=== PATIENT | female | born 1955 | race Caucasian/White ===

== ENCOUNTER → 2016-04-14 | Outpatient (CLI) | payer OTHER, BC | LOC: RAD 10:36 | PROVIDERS: ATTEND Internal Medicine | DX: M54.14 Radiculopathy, thoracic region (principal) | CPT/HCPCS: 72146 ==

== ENCOUNTER → 2016-10-07 | Outpatient (CLI) | payer OTHER, BC ==
--- NOTE | 2016-10-08 09:41 | RADIOLOGY REPORT (SQ) ---
EXAM DESCRIPTION: MRI CERVICAL SPINE WITHOUT COMPLETED DATE/TIME: 10/07/2016 10:42 am REASON FOR STUDY: RADICULOPATHY, CERVICAL REGION M54.12 RADICULOPATHY, CERVICAL REGION COMPARISON: CT soft tissue neck 02/09/2012 TECHNIQUE: Sagittal and Axial imaging includes T1, T2, STIR and gradient echo sequences. LIMITATIONS: None. FINDINGS: ALIGNMENT: Normal. VERTEBRAE: Intact. BONE MARROW: Normal. No marrow replacement or reactive changes. DISCS: Diffuse decreased T2 weighted intervertebral disc signal. HARDWARE: None in the spine. CORD AND BASE OF BRAIN: Normal in size and signal intensity. SOFT TISSUES: No soft tissue masses. C1-C2: No significant spinal stenosis. C2-C3: No significant spinal stenosis or exit foraminal stenosis. C3-C4: No significant spinal stenosis or exit foraminal stenosis. Mild posterior disc bulging is pre sent. Mild left facet hypertrophy. C4-C5: No significant spinal stenosis or exit foraminal stenosis. Mild diffuse posterior disc bulgin g is present. C5-C6: Moderate diffuse posterior disc bulging is present partly effacing the ventral thecal sac with out cord flattening or abnormal intrinsic cord signal. Borderline central canal narrowing. Mild lucie ateral foraminal narrowing from facet and uncovertebral hypertrophy. C6-C7: Moderate diffuse posterior disc bulging is present partly effacing the ventral thecal sac with out cord flattening or abnormal intrinsic cord signal. Borderline central canal narrowing. Mild lucie ateral foraminal narrowing from facet and uncovertebral hypertrophy. C7-T1: No significant spinal stenosis or exit foraminal stenosis. UPPER THORACIC: Incompletely imaged. No significant spinal stenosis or exit foraminal stenosis. OTHER: No other significant finding. IMPRESSION: Degenerative changes at C5-6 and C6-7 as above TECHNICAL DOCUMENTATION: JOB ID: [id number] [employer]- All Rights Reserved
== END ==
LOC: RAD 09:52
PROVIDERS: ATTEND Orthopaedic Surgery
DX: M54.12 Radiculopathy, cervical region (principal)
CPT/HCPCS: 72141

== ENCOUNTER 2016-10-11 15:31 | Emergency (ER) | payer OTHER, BC ==
[2016-10-11] MEDS ORDERED: ONDANSETRON HCL INJ/PF 4 MG/2 ML SDV IV ONE (16:47)
[2016-10-11] MEDS ORDERED: NORMAL SALINE 1000 ML 1,000 ML IV PRN (16:48)
--- NOTE | 2016-10-11 16:54 | ER Document Report ---
ED Medical Screen (RME) - General Chief Complaint: Dizziness Stated Complaint: HEADACHE, NAUSEA, DIARRHEA Time Seen by Provider: 10/11/16 16:41 Mode of Arrival: Ambulatory Information source: Patient TRAVEL OUTSIDE OF THE [place] IN LAST 30 DAYS: No - HPI Onset: This morning Onset/Duration: Gradual, Constant Quality of pain: Dull Severity: Mild Associated Symptoms: Diarrhea, Nausea Exacerbated by: Denies Relieved by: Denies Recently seen / treated by doctor: Yes - yesterday Notes: 10/11/16 16:52 Patient is a 61-year-old female who was seen by her primary care doctor yesterday for symptoms of upper respiratory infection. Patient was diagnosed with bronchitis and sinusitis. Patient was started on Levaquin along with Mucinex. Patient states today she developed nausea, vomiting, and diarrhea. Patient states she also does not feel well and feels dizzy. Syncope. No chest pain or shortness of breath. Patient feels dehydrated although she is drinking plenty of fluids. - Related Data Allergies/Adverse Reactions: codeine [Codeine] Allergy (Verified 10/11/16 15:38) Sulfa (Sulfonamide Antibiotics) Allergy (Verified 10/11/16 15:38) sulfamethoxazole [From Septra] Allergy (Verified 10/11/16 16:34) tramadol HCl [From Ultram] Allergy (Verified 10/11/16 15:38) trimethoprim [From Septra] Allergy (Verified 10/11/16 16:34) valacyclovir [From Valtrex] Allergy (Verified 10/11/16 16:34) Past Medical History - General Information source: Patient, [facility] Records - Social History Frequency of alcohol use: Occasional Drug Abuse: None Lives with: Family - Past Medical History Cardiac Medical History: Reports: Hx Hypertension Renal/ Medical History: Denies: Hx Peritoneal Dialysis GI Medical History: Reports: Other - Irritable bowel syndrome Review of Systems - Review of Systems Gastrointestinal: Abdominal pain, Diarrhea, Nausea -: Yes All other systems reviewed and negative Physical Exam - Vital signs Vitals: Temp Pulse Resp BP Pulse Ox 97.6 F 73 20 180/96 H 100 10/11/16 15:37 10/11/16 15:37 10/11/16 15:37 10/11/16 15:37 10/11/16 15:37 Interpretation: Normal - General General appearance: Appears well, Alert - HEENT Head: Normocephalic, Atraumatic Eyes: Normal Pupils: PERRL - Respiratory Respiratory status: No respiratory distress Chest status: Nontender Breath sounds: Normal Chest palpation: Normal - Cardiovascular Rhythm: Regular Heart sounds: Normal auscultation Murmur: No - Abdominal Inspection: Normal Distension: No distension Bowel sounds: Normal Tenderness: Nontender Organomegaly: No organomegaly - Back Back: Normal, Nontender - Extremities General upper extremity: Normal inspection, Nontender, Normal color, Normal ROM , Normal temperature General lower extremity: Normal inspection, Nontender, Normal color, Normal ROM , Normal temperature, Normal weight bearing. No: Velvet's sign - Neurological Neuro grossly intact: Yes Cognition: Normal Orientation: AAOx4 Eaton Coma Scale Eye Opening: Spontaneous Gurpreet Coma Scale Verbal: Oriented Eaton Coma Scale Motor: Obeys Commands Eaton Coma Scale Total: 15 Speech: Normal Motor strength normal: LUE, RUE, LLE, RLE Sensory: Normal - Psychological Associated symptoms: Normal affect, Normal mood - Skin Skin Temperature: Warm Skin Moisture: Dry Skin Color: Normal Course - Re-evaluation Re-evalutation: 10/11/16 18:36 Patient reassessed and is feeling better. Results reviewed and discussed with patient. She wishes to continue on the Levaquin. She will discontinue the Mucinex. She will follow-up with her primary care doctor. - Vital Signs Vital signs: Temp Pulse Resp BP Pulse Ox 97.6 F 73 20 180/96 H 100 10/11/16 15:37 10/11/16 15:37 10/11/16 15:37 10/11/16 15:37 10/11/16 15:37 - Laboratory Result Diagrams: 10/11/16 17:20 10/11/16 17:20 Laboratory results interpreted by me: 10/11/16 10/11/16 10/11/16 17:20 17:20 17:44 Seg Neutrophils % 78.4 H Sodium 128.8 L Chloride 94 L AST 48 H ALT 120 H Alkaline Phosphatase 162 H Urine Ketones 20 H Ur Leukocyte Esterase TRACE H Urine Ascorbic Acid 40 H Doctor's Discharge - Discharge Clinical Impression: Nausea, Hyponatremia Disposition: HOME, SELF-CARE Instructions: Nausea or Vomiting, Nonspecific ([facility]), Hyponatremia ([facility]) Additional Instructions: Follow-up with your primary care doctor. Return to the emergency department if worse or for any other problems. Prescriptions: Ondansetron [Zofran Odt 4 mg Tablet] 1 - 2 tab PO Q4H PRN #15 tab.rapdis PRN Reason: For Nausea/Vomiting
[2016-10-11 17:32] LABS: ABSOLUTE BASOPHILS # (AUTO) 0.1 10^3/uL (0.0-0.2); ABSOLUTE LYMPHOCYTES (AUTO) 1.2 10^3/uL (0.5-4.7); ABSOLUTE MONOCYTES (AUTO) 0.5 10^3/uL (0.1-1.4); ABSOLUTE NEUT (AUTO) 6.6 10^3/uL (1.7-8.2); BASOPHILS % (AUTO) 0.6 % (0-2); EOSINOPHILS % (AUTO) 0.4 % (0-6); HEMOGLOBIN 14.5 g/dL (12.0-15.5); HGB HCT DIFFERENCE -0.5; LYMPHOCYTES % (AUTO) 14.1 % (13-45); MEAN CORPUSCULAR HEMOGLOBIN 27.9 pg (27.0-33.4); MEAN CORPUSCULAR HGB CONC 32.9 g/dL (32.0-36.0); MEAN CORPUSCULAR VOLUME 85 fl (80-97); MONOCYTES % (AUTO) 6.5 % (3-13); RED BLOOD COUNT 5.21 10^6/uL (3.72-5.28); RED CELL DISTRIBUTION WIDTH 13.7 % (11.5-14.0); SEGMENTED NEUTROPHILS % (AUTO) 78.4 % (42-78); WHITE BLOOD COUNT 8.4 10^3/uL (4.0-10.5)
[2016-10-11 17:46] LABS: ALANINE AMINOTRANSFERASE 120 U/L (9-52); ALBUMIN 4.3 g/dL (3.5-5.0); ALKALINE PHOSPHATASE 162 U/L (38-126); ANION GAP 12 (5-19); ASPARTATE AMINO TRANSFERASE 48 U/L (14-36); BILIRUBIN,DIRECT 0.2 mg/dL (0.0-0.4); BILIRUBIN,TOTAL 0.7 mg/dL (0.2-1.3); BLOOD UREA NITROGEN 13 mg/dL (7-20); CARBON DIOXIDE 23 mmol/L (22-30); CHLORIDE 94 mmol/L (98-107); CREATININE RESULT 0.52 mg/dL (0.52-1.25); GLUCOSE 110 mg/dL (75-110); POTASSIUM 4.4 mmol/L (3.6-5.0); SODIUM 128.8 mmol/L (137-145); TOTAL PROTEIN 7.6 g/dL (6.3-8.2)
[2016-10-11 18:07] LABS: APPEARANCE,URINE SLIGHTLY-CLOUDY; BILIRUBIN,URINE NEGATIVE (NEGATIVE); GLUCOSE, URINE NEGATIVE (NEGATIVE); KETONES,URINE 20 mg/dL (NEGATIVE); LEUKOCYTE ESTERASE,URINE TRACE (NEGATIVE); NITRITE,URINE NEGATIVE (NEGATIVE); PROTEIN,URINE NEGATIVE (NEGATIVE); URINE SPECIFIC GRAVITY 1.014; UROBILINOGEN,URINE NEGATIVE mg/dL (<2.0)
[2016-10-11 19:24] VITALS: BP 162/86
== END 2016-10-11 18:52 | disposition home or self-care (01) ==
LOC: ER 15:31
DX: R11.2 Nausea with vomiting, unspecified (principal); R19.7 Diarrhea, unspecified; R10.9 Unspecified abdominal pain; R55 Syncope and collapse; E87.1 Hypo-osmolality and hyponatremia; J40 Bronchitis, not specified as acute or chronic; J32.9 Chronic sinusitis, unspecified; Z88.5 Allergy status to narcotic agent; Z88.2 Allergy status to sulfonamides; Z88.1 Allergy status to other antibiotic agents; Z88.3 Allergy status to other anti-infective agents; Z87.19 Personal history of other diseases of the digestive system
CPT/HCPCS: 99284; 96374; 36415; 85025; 80053; 81001; J2405

== ENCOUNTER → 2017-05-29 | Outpatient (CLI) | payer OTHER, BC ==
--- NOTE | 2017-06-04 08:03 | WOMENS IMAGING REPORT ---
EXAM DESCRIPTION: 3D SCREENING MAMMO BILAT COMPLETED DATE/TIME: 05/29/2017 8:02 am REASON FOR STUDY: SCREENING MAMMO Z12.31 ENCNTR SCREEN MAMMOGRAM FOR MALIGNANT NEOPLASM OF BEBE COMPARISON: 08/12/2015 TECHNIQUE: Standard craniocaudal and mediolateral oblique views of each breast recorded using digita l acquisition and breast tomosynthesis. LIMITATIONS: None. FINDINGS: Findings present which are benign by mammographic criteria. No suspicious masses, calcifi cations or architectural distortion. Pertinent benign findings: Benign-appearing calcifications. Read with the assistance of CAD. .[facility] - R2 [employer] Version 1.3 .[facility] Imaging - R2 Cenova Version 1.3 .[facility] - R2 Cenova Version 2.4 .[facility] - R2 Cenova Version 2.4 .[facility] - R2 Copyright Clerk Version 9.2 Benign mammographic findings may include one or more of the following: Smooth masses, popcorn/rim/co arse calcifications, asymmetries, post-procedure changes, and lesions with long-standing stability. IMPRESSION: BENIGN MAMMOGRAPHIC FINDINGS. BIRADS 2 BREAST DENSITY: c. The breasts are heterogeneously dense, which may obscure small masses. BIRAD: 2 BENIGN FINDING(S) RECOMMENDATION: RECOMMENDATION: ROUTINE SCREENING COMMENT: The patient has been notified of the results by letter per SA requirements. Additional no tification policies are in place for contacting patient with suspicious or incomplete findings. Quality ID #[id number]: The [employer] recommends an annual screening mammogram for women aged 40 years or over. This facility utilizes a reminder system to ensure that all patients receive reminder letters, and/or direct phone calls for appointments. This includes reminders for routine scr eening mammograms, diagnostic mammograms, or other Breast Imaging Interventions when appropriate. Th is patient will be placed in the appropriate reminder system. The [employer] (ACR) has developed recommendations for screening MRI of the breast s in certain patient populations, to be used in conjunction with mammography. Breast MRI surveillanc e may be appropriate for women with more than 20% lifetime risk of developing breast cancer as deter mined by genetic testing, significant family history of the disease, or history of mantle radiation f or Hodgkins Disease. ACR Practice Guidelines 2008. DBT Technology DBT is a type of tomographic mammography. With conventional mammography, overlapping breast tissue ma y make lesions difficult to detect, even with good compression. DBT uses an x-ray tube that rotates a round the breast, taking images at different angles. These images are then combined to create thin sl ices of the breast that the radiologist can view as a 3D reconstruction. The Hologic unit can perform full-field digital mammograms (2D imaging); or DBT (3D imaging); or both, in a combination mode that quickly performs both the mammogram and the tomosynthesis scan while the breast is still compressed. PQRS 6045F: Fluoroscopic imaging is not utilized for breast tomosynthesis. TECHNICAL DOCUMENTATION: FINDING NUMBER: (1) ASSESSMENT: (1) JOB ID: [id number] [employer]- All Rights Reserved Reading location - IP/workstation name: [email or web address]
== END ==
LOC: WI 07:18
PROVIDERS: ATTEND Specialist
DX: Z12.31 Encounter for screening mammogram for malignant neoplasm of breast (principal)
CPT/HCPCS: 77063; 77067

== ENCOUNTER → 2018-05-09 | Outpatient (CLI) | payer OTHER, BC ==
[2018-05-09 07:43] LABS: ABSOLUTE BASOPHILS # (AUTO) 0.1 10^3/uL (0.0-0.2); ABSOLUTE EOSINOPHILS # (AUTO) 0.2 10^3/uL (0.0-0.6); ABSOLUTE LYMPHOCYTES (AUTO) 2.1 10^3/uL (0.5-4.7); ABSOLUTE MONOCYTES (AUTO) 0.5 10^3/uL (0.1-1.4); ABSOLUTE NEUT (AUTO) 3.7 10^3/uL (1.7-8.2); BASOPHILS % (AUTO) 1.1 % (0-2); HEMATOCRIT 42.2 % (36.0-47.0); HEMOGLOBIN 14.3 g/dL (12.0-15.5); LYMPHOCYTES % (AUTO) 32.5 % (13-45); MEAN CORPUSCULAR HEMOGLOBIN 28.5 pg (27.0-33.4); MEAN CORPUSCULAR HGB CONC 33.9 g/dL (32.0-36.0); MEAN CORPUSCULAR VOLUME 84 fl (80-97); MONOCYTES % (AUTO) 7.2 % (3-13); PLATELET COUNT 302 10^3/uL (150-450); RED BLOOD COUNT 5.03 10^6/uL (3.72-5.28); RED CELL DISTRIBUTION WIDTH 14.2 % (11.5-14.0); SEGMENTED NEUTROPHILS % (AUTO) 56.2 % (42-78); TOTAL CELLS COUNTED % (AUTO) 100 %; WHITE BLOOD COUNT 6.5 10^3/uL (4.0-10.5)
[2018-05-09 08:05] LABS: ALANINE AMINOTRANSFERASE 21 U/L (9-52); ALBUMIN 4.7 g/dL (3.5-5.0); ALKALINE PHOSPHATASE 111 U/L (38-126); ANION GAP 9 (5-19); ASPARTATE AMINO TRANSFERASE 19 U/L (14-36); BILIRUBIN,DIRECT 0.1 mg/dL (0.0-0.4); BILIRUBIN,TOTAL 0.3 mg/dL (0.2-1.3); BLOOD UREA NITROGEN 18 mg/dL (7-20); CALCIUM 10.8 mg/dL (8.4-10.2); CARBON DIOXIDE 29 mmol/L (22-30); CHLORIDE 106 mmol/L (98-107); CHOLESTEROL 217.16 mg/dL (0-200); GLUCOSE 101 mg/dL (75-110); POTASSIUM 5.3 mmol/L (3.6-5.0); TOTAL PROTEIN 7.2 g/dL (6.3-8.2); TRIGLYCERIDES 89 mg/dL (<150)
[2018-05-09 08:16] LABS: DIRECT LDL 114 mg/dL (<100)
== END ==
LOC: OD 07:16
PROVIDERS: ATTEND Internal Medicine
DX: I10 Essential (primary) hypertension (principal); E78.5 Hyperlipidemia, unspecified; E83.2 Disorders of zinc metabolism; R79.89 Other specified abnormal findings of blood chemistry
CPT/HCPCS: 36415; 80053; 80061; 82306; 83970; 84443; 85025

== ENCOUNTER → 2018-05-22 | Outpatient (CLI) | payer OTHER, BC ==
--- NOTE | 2018-05-22 13:30 | RADIOLOGY REPORT (SQ) ---
EXAM DESCRIPTION: NM PARATHYROID IMAGING COMPLETED DATE/TIME: 05/22/2018 12:59 pm REASON FOR STUDY: HYPERPARATHYROIDISM E21.3 HYPERPARATHYROIDISM, UNSPECIFIED COMPARISON: None. RADIONUCLIDE AND DOSE: 21.9 millicuries Tc-99m Sestamibi. The route of agent administration: Intravenous ADDITIONAL DRUGS AND DOSES: None. TECHNIQUE: Early and delayed images of the neck acquired following radionuclide administration. LIMITATIONS: None. FINDINGS: Thyroid: Normal size. Homogeneous activity. Normal washout. No focal lesions. Parathyroid: No retained activity in the thyroid or elsewhere in the neck to indicate a parathyroid a denoma. Other: No other significant findings. IMPRESSION: NORMAL STUDY. NO EVIDENCE OF PARATHYROID ADENOMA. TECHNICAL DOCUMENTATION: JOB ID: [id number] [employer]- All Rights Reserved Reading location - IP/workstation name: [email or web address]
== END ==
LOC: RAD 08:20
PROVIDERS: ATTEND Internal Medicine
DX: E21.3 Hyperparathyroidism, unspecified (principal)
CPT/HCPCS: 78070; A9500; Q9969

== ENCOUNTER → 2018-10-07 | Outpatient (CLI) | payer OTHER, BC ==
--- NOTE | 2018-10-08 09:02 | WOMENS IMAGING REPORT ---
EXAM DESCRIPTION: 3D SCREENING MAMMO BILAT COMPLETED DATE/TIME: 10/07/2018 7:47 am REASON FOR STUDY: Z12.31 ENCOUNTER FOR SCREENING MAMMOGRAM FOR MALIGNANT NEOPLASM OF BREAST Z12.31 ENCNTR SCREEN MAMMOGRAM FOR MALIGNANT NEOPLASM OF BEBE COMPARISON: 2018 EXAM PARAMETERS: Views: Standard craniocaudal and mediolateral oblique views of each breast recorded using digital acquisition and breast tomosynthesis. Read with the assistance of CAD. .[facility] - [employer] Device Designer Version 9.2 LIMITATIONS: None. FINDINGS: No suspicious masses, suspicious calcifications or architectural distortion. No areas of c oncern. IMPRESSION: NEGATIVE MAMMOGRAM. BIRADS 1. BREAST DENSITY: c. The breasts are heterogeneously dense, which may obscure small masses. BIRAD: ASSESSMENT: 1 NEGATIVE RECOMMENDATION: ROUTINE SCREENING COMMENT: The patient has been notified of the results by letter per MQSA requirements. Additional no tification policies are in place for contacting patient with suspicious or incomplete findings. Quality ID #225: The [employer] recommends an annual screening mammogram for women aged 40 years or over. This facility utilizes a reminder system to ensure that all patients receive reminder letters, and/or direct phone calls for appointments. This includes reminders for routine scr eening mammograms, diagnostic mammograms, or other Breast Imaging Interventions when appropriate. Th is patient will be placed in the appropriate reminder system. TECHNICAL DOCUMENTATION: FINDING NUMBER: (1) ASSESSMENT: (1) JOB ID: [id number] [employer]- All Rights Reserved Reading location - IP/workstation name: [email or web address]
== END ==
LOC: WI 07:15
PROVIDERS: ATTEND Specialist
DX: Z12.31 Encounter for screening mammogram for malignant neoplasm of breast (principal)
CPT/HCPCS: 77063; 77067

== ENCOUNTER 2018-12-01 13:57 | Emergency (ER) | payer OTHER, BC ==
[2018-12-01] MEDS ORDERED: ACETAMINOPHEN 325 MG TABLET PO ONE (15:15)
--- NOTE | 2018-12-01 15:21 | ER Document Report ---
ED Medical Screen (RME) - General Chief Complaint: Laceration Stated Complaint: ARM LACERATION Time Seen by Provider: 12/01/18 15:09 Primary Care Provider: AUSTEN HAILE MD [Primary Care Provider] - Follow up as needed Notes: Patient is a 63-year-old female presents to the emergency department with a chief complaint of laceration. Patient states around 1245 she was using a knife to open a remote to change the batteries as it had been corroded. Patient states the knife slipped and cut her right lower forearm. Patient states initially there was squirting of blood. Patient did call EMS which they did dress the wound. Patient states her tetanus shot is up-to-date. Patient states she originally did have some numbness and tingling to her hand that has now improved. Patient reports numbness to the left inner wrist. Patient states she has not taken any medication for pain. TRAVEL OUTSIDE OF THE [place] IN LAST 30 DAYS: No - Related Data Allergies/Adverse Reactions: codeine [Codeine] Allergy (Verified 12/01/18 13:58) Sulfa (Sulfonamide Antibiotics) Allergy (Verified 12/01/18 13:58) sulfamethoxazole [From Septra] Allergy (Verified 12/01/18 13:58) tramadol HCl [From Ultram] Allergy (Verified 12/01/18 13:58) trimethoprim [From Septra] Allergy (Verified 12/01/18 13:58) valacyclovir [From Valtrex] Allergy (Verified 12/01/18 13:58) Past Medical History - Social History Chew tobacco use (# tins/day): No Frequency of alcohol use: Occasional Drug Abuse: None - Past Medical History Cardiac Medical History: Reports: Hx Hypertension Renal/ Medical History: Denies: Hx Peritoneal Dialysis Physical Exam - Vital signs Vitals: Temp Pulse Resp BP Pulse Ox 97.7 F 62 17 115/94 H 96 12/01/18 14:06 12/01/18 14:06 12/01/18 14:06 12/01/18 14:06 12/01/18 14:06 Interpretation: Normal - Extremities Notes: There is a 3 cm linear laceration noted to the inner right lower forearm, subcutaneous tissue noted without visualization of muscle, tendon or nerve. There is active bleeding when dressing was removed. Course - Re-evaluation Re-evalutation: 12/01/18 15:19 Patient require a laceration repair with sutures, the wound will also require lidocaine with wound exploration. Patient's tetanus shot is up-to-date. 12/01/18 15:21 I have greeted and performed a rapid initial assessment of this patient. A comprehensive ED assessment and evaluation of the patient, analysis of test results and completion of the medical decision making process will be conducted by additional ED providers. - Vital Signs Vital signs: Temp Pulse Resp BP Pulse Ox 97.7 F 62 17 115/94 H 96 12/01/18 14:06 12/01/18 14:06 12/01/18 14:06 12/01/18 14:06 12/01/18 14:06 Doctor's Discharge - Discharge Referrals: AUSTEN HAILE MD [Primary Care Provider] - Follow up as needed
[2018-12-01] MEDS ORDERED: LIDOCAINE 1%/EPINEPHRINE INJ 20 ML VIAL INJ ONE (16:46)
--- NOTE | 2018-12-01 18:44 | ER Document Report ---
ED General - General Chief Complaint: Laceration Stated Complaint: ARM LACERATION Time Seen by Provider: 12/01/18 15:09 Primary Care Provider: AUSTEN HAILE MD [EMERITUS] - Follow up as needed Notes: 63-year-old female who was trying to get corroded batteries out of something using a knife when the knife slipped and she stabbed herself in the volar aspect of her left forearm. Patient complains of numbness initially to her fingers and her palm of the left hand now only complains of numbness to the palm of the left hand. Denies weakness. States that blood spurted across the room. Vaccines are up-to-date. Denies taking any blood thinners or having any bleeding disorders. Patient is right-handed. TRAVEL OUTSIDE OF THE [place] IN LAST 30 DAYS: No - Related Data Allergies/Adverse Reactions: codeine [Codeine] Allergy (Verified 12/01/18 13:58) Sulfa (Sulfonamide Antibiotics) Allergy (Verified 12/01/18 13:58) sulfamethoxazole [From Septra] Allergy (Verified 12/01/18 13:58) tramadol HCl [From Ultram] Allergy (Verified 12/01/18 13:58) trimethoprim [From Septra] Allergy (Verified 12/01/18 13:58) valacyclovir [From Valtrex] Allergy (Verified 12/01/18 13:58) Past Medical History - General Information source: Patient - Social History Smoking Status: Never Smoker Chew tobacco use (# tins/day): No Frequency of alcohol use: Occasional Drug Abuse: None Family History: Reviewed & Not Pertinent Patient has suicidal ideation: No Patient has homicidal ideation: No - Past Medical History Cardiac Medical History: Reports: Hx Hypertension Renal/ Medical History: Denies: Hx Peritoneal Dialysis Past Surgical History: Reports: Hx Cholecystectomy, Hx Hysterectomy Review of Systems - Review of Systems Constitutional: No symptoms reported Cardiovascular: No symptoms reported Respiratory: No symptoms reported Gastrointestinal: No symptoms reported Genitourinary: No symptoms reported Musculoskeletal: See HPI Skin: See HPI Neurological/Psychological: See HPI Physical Exam - Vital signs Vitals: Temp Pulse Resp BP Pulse Ox 97.7 F 62 17 115/94 H 96 12/01/18 14:06 12/01/18 14:06 12/01/18 14:06 12/01/18 14:06 12/01/18 14:06 Interpretation: Normal - General General appearance: Appears well, Alert In distress: None - HEENT Head: Normocephalic, Atraumatic Eyes: Normal Pupils: PERRL - Respiratory Respiratory status: No respiratory distress - Cardiovascular Pulses: Normal: Radial Normal capillary refill: Yes - Extremities Notes: Patient complains of pain with tool crib lead strength and with flexion at the left wrist. Patient does complain of some decreased sensation to the left palm however after she has been observed for approximately an hour the numbness to the left palm has resolved. Patient is able to approximate her thumb to her fourth finger and her fifth digit. - Skin Notes: 3 cm laceration to the volar aspect of the midforearm on the left, it is gaping, one blood vessels identified but there is no active bleeding only small amount of oozing from the subcutaneous tissues, subcutaneous fat is exposed. This is linear. There is no contamination. After being explored with lidocaine and epinephrine there are no tendons, nerves or ligaments identified. I cannot see any muscle. Course - Vital Signs Vital signs: Temp Pulse Resp BP Pulse Ox 97.7 F 62 17 115/94 H 96 12/01/18 14:06 12/01/18 14:06 12/01/18 14:06 12/01/18 14:06 12/01/18 14:06 Procedures - Laceration/Wound Repair Left forearm Wound length (cm): 3 Wound's Depth, Shape: Linear. No: Into muscle Laceration pre-procedure: Sterile PPE donned, Sterile drapes applied, Shur-Clens applied Anesthetic type: 1% Lidocaine w/epi Volume Anesthetic (mLs): 4 Wound explored: Clean, No foreign body removed Wound Repaired With: Sutures Suture Size/Type: 4:0, Ethilon Number of Sutures: 4 Layer Closure?: No Post-procedure NV exam normal: Yes Complications: No Discharge - Discharge Clinical Impression: Forearm laceration Qualifiers: Encounter type: initial encounter Laterality: left Qualified Code(s): S51.812A - Laceration without foreign body of left forearm, initial encounter Condition: Stable Disposition: HOME, SELF-CARE Additional Instructions: Laceration Care Your laceration has been sutured to keep the skin edges aligned during healing. The time of suture removal depends on the nature and location of your cut. Please follow the care instructions the doctor has outlined for you and return for further care, according to the schedule you've been given. Keep the wound and dressing clean. Unless you were told otherwise, you may shower daily, blotting the wound dry with a clean, unused towel. At other times, If the dressing gets wet or blood soaked, remove it and blot the wound dry, then reapply a new dressing. Unless you were instructed otherwise, dressings should be changed at least daily. If any signs of infection occur (swelling, redness, increasing tenderness, red streaks, tender lumps in the armpit or groin above the laceration, or fever), see the doctor immediately. If you develop any redness or swelling please start taking the antibiotics that you were prescribed. If you develop worsening redness or swelling after 2 days of antibiotics then please come to the ED. Please have the sutures removed in 7 days. Prescriptions: Cephalexin Monohydrate [Keflex 500 mg Capsule] 500 mg PO Q6H 5 Days capsule Referrals: AUSTEN HAILE MD [EMERITUS] - Follow up as needed
[2018-12-01 18:56] VITALS: BP 136/66
== END 2018-12-01 18:56 | disposition home or self-care (01) ==
LOC: ER 13:57
DX: S51.812A Laceration without foreign body of left forearm, initial encounter (principal); W26.0XXA Contact with knife, initial encounter; Y93.89 Activity, other specified; R20.0 Anesthesia of skin; I10 Essential (primary) hypertension; Z88.5 Allergy status to narcotic agent; Z88.2 Allergy status to sulfonamides; Z88.1 Allergy status to other antibiotic agents; Z88.3 Allergy status to other anti-infective agents
CPT/HCPCS: 99282; 12002; J3490

== ENCOUNTER → 2019-05-21 | Outpatient (CLI) | payer OTHER, BC ==
[2019-05-21 17:13] LABS: ALBUMIN 4.5 g/dL (3.5-5.0); ALKALINE PHOSPHATASE 91 U/L (38-126); AMYLASE 86 U/L (30-110); ANION GAP 8 (5-19); ASPARTATE AMINO TRANSFERASE 20 U/L (14-36); BILIRUBIN,DIRECT 0.2 mg/dL (0.0-0.4); BILIRUBIN,TOTAL 0.4 mg/dL (0.2-1.3); BLOOD UREA NITROGEN 17 mg/dL (7-20); CARBON DIOXIDE 32 mmol/L (22-30); CHLORIDE 101 mmol/L (98-107); GLUCOSE 91 mg/dL (75-110); POTASSIUM 5.1 mmol/L (3.6-5.0); TOTAL PROTEIN 7.7 g/dL (6.3-8.2)
--- NOTE | 2019-05-21 19:26 | RADIOLOGY REPORT (SQ) ---
EXAM DESCRIPTION: CT ABD/PELVIS WITH IV ORAL COMPLETED DATE/TIME: 05/21/2019 7:09 pm REASON FOR STUDY: R10.9 UNSPECIFIED ABDOMINAL PAIN R10.9 UNSPECIFIED ABDOMINAL PAIN K57.92 DVTRCLI OF INTEST, PART UNSP, W/O PERF OR ABSCESS W/O COMPARISON: 2015 TECHNIQUE: CT scan of the abdomen and pelvis performed using helical scanning technique with dynamic intravenous contrast injection. No oral contrast. Images reviewed with lung, soft tissue, and bone windows. Reconstructed coronal and sagittal MPR images reviewed. Delayed images for evaluation of the urinary system also acquired. All images stored on PACS. All CT scanners at this facility use dose modulation, iterative reconstruction, and/or weight based d osing when appropriate to reduce radiation dose to as low as reasonably achievable (ALARA). [facility]: Dose Right [facility]: CareDose [facility]: Dose Right [facility]: Teradose 4D [facility]: Pear Deck CONTRAST TYPE AND DOSE: contrast/concentration: Isovue 350.00 mg/ml; Total Contrast Delivered: 78.0 ml; Total Saline Delivered: 45.2 ml RENAL FUNCTION: GFR > 60. RADIATION DOSE: CT Rad equipment meets quality standard of care and radiation dose reduction techniq ues were employed. CTDIvol: 7.3 - 9.9 mGy. DLP: 868 mGy-cm.. LIMITATIONS: None. FINDINGS: LOWER CHEST: No significant findings. No nodules or infiltrates. LIVER: Diffusely mildly fatty. Tiny cyst in the left lobe, chronic. No developing or worrisome lesi ons. SPLEEN: Normal size. No focal lesions. PANCREAS: No masses. No significant calcifications. No adjacent inflammation or peripancreatic fluid collections. Pancreatic duct not dilated. GALLBLADDER: Surgically absent. ADRENAL GLANDS: No significant masses or asymmetry. RIGHT KIDNEY AND URETER: No solid masses. No significant calcification. No hydronephrosis or hydroure ter. LEFT KIDNEY AND URETER: No solid masses. No change in minimally complicated left renal cyst. No sig nificant calcification. No hydronephrosis or hydroureter. AORTA AND VESSELS: No aneurysm. No dissection. Renal arteries, SMA, celiac without stenosis. RETROPERITONEUM: No retroperitoneal adenopathy, hemorrhage or masses. BOWEL AND PERITONEAL CAVITY: Large amount of stool throughout the colon. No wall thickening, gross p oint of obstruction or inflammatory change. APPENDIX: Normal. PELVIS: No mass. No free fluid. Normal bladder. ABDOMINAL WALL: No masses. No hernias. BONES: Spondylosis. No fracture or bone lesion. OTHER: No other significant finding. IMPRESSION: 1. No acute or suspicious abdominopelvic abnormality. 2. Constipation. 3. Other chronic changes as detailed above. TECHNICAL DOCUMENTATION: JOB ID: [id number] Quality ID # [id number]: Final reports with documentation of one or more dose reduction techniques (e.g., Au tomated exposure control, adjustment of the mA and/or kV according to patient size, use of iterative reconstruction technique) 2010 [employer]- All Rights Reserved Reading location - IP/workstation name: [email or web address]
== END ==
LOC: RAD 16:27
PROVIDERS: ATTEND Internal Medicine
DX: R10.9 Unspecified abdominal pain (principal); K57.92 Diverticulitis of intestine, part unspecified, without perforation or abscess without bleeding
CPT/HCPCS: 36415; 74177; 80053; 82150; 83690

== ENCOUNTER → 2019-10-09 | Outpatient (CLI) | payer OTHER, BC ==
--- NOTE | 2019-10-09 13:11 | WOMENS IMAGING REPORT ---
EXAM DESCRIPTION: 3D SCREENING MAMMO BILAT IMAGES COMPLETED DATE/TIME: 10/09/2019 8:55 am REASON FOR STUDY: Z12.31 ENCOUNTER FOR SCREENING MAMMOGRAM FOR MALIGNANT NEOPLASM OF BREAST Z12.31 ENCNTR SCREEN MAMMOGRAM FOR MALIGNANT NEOPLASM OF BEBE COMPARISON: 10/07/2018, 05/29/2017 EXAM PARAMETERS: Views: Standard craniocaudal and mediolateral oblique views of each breast recorded using digital acquisition and breast tomosynthesis. Read with the assistance of CAD. .[facility] - R2 [employer] Version 9.2 LIMITATIONS: None. FINDINGS: No suspicious masses, suspicious calcifications or architectural distortion. No areas of c oncern. IMPRESSION: NEGATIVE MAMMOGRAM. BIRADS 1. BREAST DENSITY: c. The breasts are heterogeneously dense, which may obscure small masses. BIRAD: ASSESSMENT: 1 NEGATIVE RECOMMENDATION: ROUTINE SCREENING COMMENT: The patient has been notified of the results by letter per MQSA requirements. Additional no tification policies are in place for contacting patient with suspicious or incomplete findings. Quality ID #[id number]: The [employer] recommends an annual screening mammogram for women aged 40 years or over. This facility utilizes a reminder system to ensure that all patients receive reminder letters, and/or direct phone calls for appointments. This includes reminders for routine scr eening mammograms, diagnostic mammograms, or other Breast Imaging Interventions when appropriate. Th is patient will be placed in the appropriate reminder system. TECHNICAL DOCUMENTATION: FINDING NUMBER: (1) ASSESSMENT: (1) JOB ID: [id number] 2010 [employer]- All Rights Reserved Reading location - IP/workstation name: [email or web address]
== END ==
LOC: WI 08:31
PROVIDERS: ATTEND Specialist
DX: Z12.31 Encounter for screening mammogram for malignant neoplasm of breast (principal)
CPT/HCPCS: 77063; 77067

== ENCOUNTER 2020-02-23 12:16 | Emergency (ER) | payer OTHER, BC ==
[2020-02-23 12:24] VITALS: BP 157/80
--- NOTE | 2020-02-23 13:04 | ER Document Report ---
ED Medical Screen (RME) - General Chief Complaint: Abdominal Pain Stated Complaint: FEVER FLANK PAIN Time Seen by Provider: 02/23/20 12:58 Primary Care Provider: CAL KONG MD [Primary Care Provider] - Follow up as needed Mode of Arrival: Ambulatory Information source: Patient Notes: Patient is a 64-year-old female comes emergency room complaining of left lower quadrant pain. Patient states that started with the belly pain on Sunday progressively getting worse over the weekend and today it was much worse. She has had some lower back pain as well. She did not states she is also had a fever up to 99.9. She has had no nausea no vomiting no diarrhea. No history of stones in the past. She has had a cholecystectomy and a total hysterectomy. Physical examination: Patient is well-nourished well-developed 64-year-old female no apparent distress on examination today. Cardiac: Regular rate and rhythm no murmurs. Lungs: Bilateral breath sounds breath sounds increased clear auscultation. Abdomen: In a sitting position patient has severe pain and discomfort to palpation of the left lower quadrant. All other quadrants are normal without any pain or discomfort in the sitting position. I have greeted and performed a rapid initial assessment of this patient. A comprehensive ED assessment and evaluation of the patient, analysis of test results and completion of the medical decision making process will be conducted by additional ED providers. Dictation of this chart was performed using voice recognition software; therefore, there may be some unintended grammatical errors. TRAVEL OUTSIDE OF THE [place] IN LAST 30 DAYS: No - Related Data Allergies/Adverse Reactions: codeine [Codeine] Allergy (Verified 12/01/18 13:58) Sulfa (Sulfonamide Antibiotics) Allergy (Verified 12/01/18 13:58) sulfamethoxazole [From Septra] Allergy (Verified 12/01/18 13:58) tramadol HCl [From Ultram] Allergy (Verified 12/01/18 13:58) trimethoprim [From Septra] Allergy (Verified 12/01/18 13:58) valacyclovir [From Valtrex] Allergy (Verified 12/01/18 13:58) Past Medical History - Past Medical History Cardiac Medical History: Reports: Hx Hypertension Renal/ Medical History: Denies: Hx Peritoneal Dialysis Past Surgical History: Reports: Hx Cholecystectomy, Hx Hysterectomy Physical Exam - Vital signs Vitals: Temp Pulse Resp BP Pulse Ox 98.4 F 81 18 157/80 H 98 02/23/20 12:24 02/23/20 12:24 02/23/20 12:24 02/23/20 12:24 02/23/20 12:24 Course - Vital Signs Vital signs: Temp Pulse Resp BP Pulse Ox 98.4 F 81 18 157/80 H 98 02/23/20 12:24 02/23/20 12:24 02/23/20 12:24 02/23/20 12:24 02/23/20 12:24 Doctor's Discharge - Discharge Referrals: CAL KONG MD [Primary Care Provider] - Follow up as needed
[2020-02-23 13:29] LABS: ABSOLUTE BASOPHILS # (AUTO) 0.1 10^3/uL (0.0-0.2); ABSOLUTE EOSINOPHILS # (AUTO) 0.1 10^3/uL (0.0-0.6); ABSOLUTE LYMPHOCYTES (AUTO) 2.2 10^3/uL (0.5-4.7); ABSOLUTE MONOCYTES (AUTO) 0.9 10^3/uL (0.1-1.4); ABSOLUTE NEUT (AUTO) 7.5 10^3/uL (1.7-8.2); BASOPHILS % (AUTO) 0.5 % (0-2); EOSINOPHILS % (AUTO) 0.6 % (0-6); HEMATOCRIT 38.7 % (36.0-47.0); HEMOGLOBIN 13.2 g/dL (12.0-15.5); LYMPHOCYTES % (AUTO) 20.3 % (13-45); MEAN CORPUSCULAR HEMOGLOBIN 29.3 pg (27.0-33.4); MEAN CORPUSCULAR HGB CONC 34.1 g/dL (32.0-36.0); MEAN CORPUSCULAR VOLUME 86 fl (80-97); MONOCYTES % (AUTO) 8.4 % (3-13); PLATELET COUNT 255 10^3/uL (150-450); RED CELL DISTRIBUTION WIDTH 14.2 % (11.5-14.0); SEGMENTED NEUTROPHILS % (AUTO) 70.2 % (42-78); TOTAL CELLS COUNTED % (AUTO) 100 %; WHITE BLOOD COUNT 10.7 10^3/uL (4.0-10.5)
[2020-02-23 13:31] LABS: APPEARANCE,URINE CLEAR; BILIRUBIN,URINE NEGATIVE (NEGATIVE); COLOR,URINE YELLOW; GLUCOSE, URINE NEGATIVE (NEGATIVE); KETONES,URINE TRACE mg/dL (NEGATIVE); LEUKOCYTE ESTERASE,URINE SMALL (NEGATIVE); NITRITE,URINE NEGATIVE (NEGATIVE); PROTEIN,URINE NEGATIVE (NEGATIVE); URINE SPECIFIC GRAVITY 1.009; UROBILINOGEN,URINE NEGATIVE mg/dL (<2.0)
--- NOTE | 2020-02-23 13:35 | RADIOLOGY REPORT (SQ) ---
EXAM DESCRIPTION: CT ABD/PELVIS NO ORAL OR IV IMAGES COMPLETED DATE/TIME: 02/23/2020 1:22 pm REASON FOR STUDY: Left lower quadrant pain COMPARISON: 05/21/2019 TECHNIQUE: CT scan of the abdomen and pelvis performed without intravenous or oral contrast. Images reviewed with lung, soft tissue, and bone windows. Reconstructed coronal and sagittal MPR images revi ewed. All images stored on PACS. All CT scanners at this facility use dose modulation, iterative reconstruction, and/or weight based d osing when appropriate to reduce radiation dose to as low as reasonably achievable (ALARA). [facility]: Dose Right [facility]: CareDose [facility]: Dose Right [facility]: Teradose 4D [facility]: Signature RADIATION DOSE: CT Rad equipment meets quality standard of care and radiation dose reduction techniq ues were employed. CTDIvol: 5.3 mGy. DLP: 276 mGy-cm.mGy. LIMITATIONS: None. FINDINGS: LOWER CHEST: No significant findings. No nodules or infiltrates. NON-CONTRASTED LIVER, SPLEEN, ADRENALS: Evaluation limited by lack of IV contrast. No identified sign ificant masses. PANCREAS: No masses. No peripancreatic inflammatory changes. GALLBLADDER: Surgically absent. RIGHT KIDNEY AND URETER: No suspicious masses. Assessment limited by lack of IV contrast. No signif icant calcifications. No hydronephrosis or hydroureter. Mildly prominent renal pelvis unchanged fr om prior exam. LEFT KIDNEY AND URETER: No suspicious masses. Assessment limited by lack of IV contrast. Small cyst in the left kidney is again noted. The septation is not apparent on this non contrasted study. No significant calcifications. No hydronephrosis or hydroureter. AORTA AND RETROPERITONEUM: No aneurysm. No retroperitoneal masses or adenopathy. BOWEL AND PERITONEAL CAVITY: Scattered diverticuli. Thickened wall involving the sigmoid colon with surrounding mesenteric edema. Findings are consistent with acute diverticulitis. No focal abscess o r fluid collection. No free air. APPENDIX: Normal. PELVIS, BLADDER, AND ABDOMINAL WALL:No abnormal masses. No free fluid. Bladder normal. BONES: No significant findings. OTHER: No other significant finding. IMPRESSION: Sigmoid diverticulitis with bowel wall thickening and surrounding inflammatory change. No abscess or free air. COMMENT: Quality ID # [id number]: Final reports with documentation of one or more dose reduction techniques (e.g., Automated exposure control, adjustment of the mA and/or kV according to patient size, use of iterative reconstruction technique) TECHNICAL DOCUMENTATION: JOB ID: [id number] 2010 [employer]- All Rights Reserved Reading location - IP/workstation name: [email or web address]
[2020-02-23 13:46] LABS: ALBUMIN 4.1 g/dL (3.5-5.0); ALKALINE PHOSPHATASE 190 U/L (38-126); ANION GAP 9 (5-19); ASPARTATE AMINO TRANSFERASE 165 U/L (14-36); BILIRUBIN,DIRECT 0.1 mg/dL (0.0-0.4); BILIRUBIN,TOTAL 0.8 mg/dL (0.2-1.3); BLOOD UREA NITROGEN 10 mg/dL (7-20); CALCIUM 10.5 mg/dL (8.4-10.2); CARBON DIOXIDE 27 mmol/L (22-30); CHLORIDE 102 mmol/L (98-107); GLUCOSE 90 mg/dL (75-110); POTASSIUM 4.4 mmol/L (3.6-5.0); TOTAL PROTEIN 6.9 g/dL (6.3-8.2)
[2020-02-23] MEDS ORDERED: CIPROFLOXACIN HCL 500 MG TABLET PO ONE (17:00)
[2020-02-23] MEDS ORDERED: METRONIDAZOLE 500 MG TABLET PO ONE (17:00)
[2020-02-23] MEDS ORDERED: KETOROLAC TROMETHAMINE 60 MG/2 ML SDV IM ONE (17:00)
--- NOTE | 2020-02-23 17:07 | ER Document Report ---
ED General - General Chief Complaint: Abdominal Pain Stated Complaint: FEVER FLANK PAIN Time Seen by Provider: 02/23/20 12:58 Primary Care Provider: CAL KONG MD [Primary Care Provider] - Follow up in 1 week Mode of Arrival: Ambulatory TRAVEL OUTSIDE OF THE [place] IN LAST 30 DAYS: No - HPI Notes: 64-year-old female to the emergency department with complaints of left lower quadrant abdominal pain that started this past Sunday and has persisted. She states she has had a low-grade fever with T-max of 99.9 last night. Denies any nausea vomiting or diarrhea. Denies any blood in her stool. Her last bowel movement was yesterday. She states that she does have a GI specialist and had a colonoscopy 2 years ago. It showed polyps and diverticulosis. She has never had diverticulitis before. She denies any other complaints. - Related Data Allergies/Adverse Reactions: codeine [Codeine] Allergy (Verified 12/01/18 13:58) Sulfa (Sulfonamide Antibiotics) Allergy (Verified 12/01/18 13:58) sulfamethoxazole [From Septra] Allergy (Verified 12/01/18 13:58) tramadol HCl [From Ultram] Allergy (Verified 12/01/18 13:58) trimethoprim [From Septra] Allergy (Verified 12/01/18 13:58) valacyclovir [From Valtrex] Allergy (Verified 12/01/18 13:58) Past Medical History - General Information source: Patient - Social History Smoking Status: Never Smoker Family History: Reviewed & Not Pertinent Patient has homicidal ideation: No - Past Medical History Cardiac Medical History: Reports: Hx Hypertension Renal/ Medical History: Denies: Hx Peritoneal Dialysis Past Surgical History: Reports: Hx Cholecystectomy, Hx Hysterectomy Physical Exam - Vital signs Vitals: Temp Pulse Resp BP Pulse Ox 98.4 F 81 18 157/80 H 98 02/23/20 12:24 02/23/20 12:24 02/23/20 12:24 02/23/20 12:24 02/23/20 12:24 Course - Re-evaluation Re-evalutation: 02/23/20 17:02 Patient with sigmoid diverticulitis, confirmed on CT. Appears to be uncomplicated. Does have a mild leukocytosis. She is not febrile here. She has some appropriate left lower quadrant abdominal pain on exam but does not have rebound or guarding. We will start her on Flagyl and Cipro for outpatient therapy. She has told me that her job will required her to get Covid screening. She has no other symptoms of coronavirus. She denies any sore throat, cough, shortness of breath, body aches, loss of taste or smell. She does not have a kn own COVID-19 exposure. Since she requires that she will now become a PUI. I have advised that she will need to quarantine until further information about her Covid test is available. She agrees with the plan. I have encouraged her to return immediately if she has worsening symptoms. Patient was provided with discharge information including: As a person under investigation for COVID-19, [facility] of Health and Human Services, division of public health advises you to adhere to the following guidance until your test results are reported to you. If your test result is positive, you will receive additional information from your provider and your local health department at that time. Remain at home until you are cleared by the healthcare provider public health authorities. Keep a log of visitors to your home and notify any visitors to your home of your isolation status. If you plan to move to a new address or leave the country, notify the local health department and your County. Call your doctor or seek care if you have an urgent medical need. Before seeking medical care, call ahead to get instructions from the provider before arriving at the medical office, clinic, or hospital. Notify them that you are being tested for the virus that causes COVID-19 so that arrangements can be made, as necessary, to prevent transmission to others in the healthcare setting. Next, notify the local health department and your County. If a medical emergency arises and you need to call 911, informed the first responders that you are being tested for the virus that causes COVID-19. Next, notified the local health department and your County. - Vital Signs Vital signs: Temp Pulse Resp BP Pulse Ox 98.4 F 81 18 157/80 H 98 02/23/20 12:24 02/23/20 12:24 02/23/20 12:24 02/23/20 12:24 02/23/20 12:24 - Laboratory Result Diagrams: 02/23/20 13:12 02/23/20 13:12 Laboratory results interpreted by me: 02/23/20 02/23/20 02/23/20 13:12 13:12 13:12 WBC 10.7 H RDW 14.2 H Creatinine 0.51 L Calcium 10.5 H AST 165 H ALT 316 H Alkaline Phosphatase 190 H Urine Ketones TRACE H Ur Leukocyte Esterase SMALL H Urine Ascorbic Acid 20 H - Diagnostic Test Radiology reviewed: Image reviewed, Reports reviewed Discharge - Discharge Clinical Impression: Sigmoid diverticulitis, Left lower quadrant abdominal pain Condition: Stable Disposition: HOME, SELF-CARE Instructions: Diverticulitis ([facility]) Additional Instructions: Complete all antibiotics. Take all antibiotics until gone. you may take Motrin and Tylenol for pain control. Return immediately if intractable vomiting, worsening abdominal pain, or any worsening symptoms. Please follow- up with your GI specialist without fail in the next week. You have been tested for COVID-19 today. Likely that your symptoms are from diverticulitis but since you are being tested you must quarantine until you have the further information. As a person under investigation for COVID-19, [facility] of Health and Human Services, division of public health advises you to adhere to the following guidance until your test results are reported to you. If your test result is positive, you will receive additional information from your provider and your local health department at that time. Remain at home until you are cleared by the healthcare provider public health authorities. Keep a log of visitors to your home and notify any visitors to your home of your isolation status. If you plan to move to a new address or leave the country, notify the local health department and your County. Call your doctor or seek care if you have an urgent medical need. Before seeking medical care, call ahead to get instructions from the provider before arriving at the medical office, clinic, or hospital. Notify them that you are being tested for the virus that causes COVID-19 so that arrangements can be made, as necessary, to prevent transmission to others in the healthcare setting. Next, notify the local health department and your County. If a medical emergency arises and you need to call 911, informed the first re sponders that you are being tested for the virus that causes COVID-19. Next, notified the local health department and your County. Prescriptions: Ciprofloxacin HCl [Cipro 500 mg Tablet] 500 mg PO BID #20 tablet Fluconazole [Diflucan] 150 mg PO ONCE PRN #1 tablet PRN Reason: Metronidazole [Flagyl 500 mg Tablet] 500 mg PO TID #30 tablet Ibuprofen [Motrin 800 mg Tablet] 800 mg PO Q8H PRN #30 tab PRN Reason: Forms: Return to Work Referrals: CAL KONG MD [Primary Care Provider] - Follow up in 1 week
== END 2020-02-23 18:20 | disposition home or self-care (01) ==
LOC: ER 12:16
DX: K57.32 Diverticulitis of large intestine without perforation or abscess without bleeding (principal); R10.32 Left lower quadrant pain; D72.829 Elevated white blood cell count, unspecified; R50.9 Fever, unspecified; I10 Essential (primary) hypertension; Z20.828 Contact with and (suspected) exposure to other viral communicable diseases; Z88.6 Allergy status to analgesic agent; Z88.2 Allergy status to sulfonamides
CPT/HCPCS: 99285; 96372; 36415; 87086; 85025; 87635; 87088; 80053; 81001; 74176; J1885; C9803